=== PATIENT | female | born 1955 | race Caucasian/White ===

== ENCOUNTER 2016-06-25 16:18 | Emergency (ER) | payer BC ==
--- NOTE | 2016-06-25 16:21 | PDOC ---
History of Present Illness - History of Present Illness Initial Comments: 06/25/16 16:33 Patient is a 60 year old female with significant medical hx of arthritis who is presenting to the ED with a superficial laceration to the left thumb since today. The patient accidentally cut her thumb using a clean, new exacto knife. She reports her last tetanus shot is unknown. <Ernestina Lindsay - Last Filed: 06/25/16 16:33> <Clay Ortega - Last Filed: 06/25/16 16:38> - General Chief Complaint: Laceration Stated Complaint: LEFT THUMB LACERATION Time Seen by Provider: 06/25/16 16:21 Past History <Ernestina Lindsay - Last Filed: 06/25/16 16:33> - Past Medical History Asthma: No Diabetes: No HTN: No - Psycho/Social/Smoking Cessation Hx Anxiety: No Suicidal Ideation: No Smoking Status: No Smoking History: Never smoked Number of Cigarettes Smoked Daily: 0 <Clay Ortega - Last Filed: 06/25/16 16:38> - Past Medical History Allergies/Adverse Reactions: Allergies Allergy/AdvReac Type Severity Reaction Status Date / Time CODIENE Allergy Uncoded 06/25/16 16:19 Home Medications: Ambulatory Orders Methotrexate [Mexate] 1 dose PO Q7D 11/06/12 Cholecalciferol (Vitamin D3) [Vitamin D3 -] 400 unit PO DAILY 06/25/16 Colesevelam HCl [Welchol (Nf)] 3,750 mg PO DAILY 06/25/16 Folic Acid 1 mg PO DAILY 06/25/16 Review of Systems - Review of Systems Comments:: 06/25/16 16:33 CONSTITUTIONAL: Absent: fever, no chills, no fatigue EYES: Absent: visual changes ENT: Absent: ear pain, no sore throat CARDIOVASCULAR: Absent: chest pain, no palpitations RESPIRATORY: Absent: cough, no SOB GI: Absent: abdominal pain, no nausea, no vomiting, no constipation, no diarrhea GENITOURINARY: Absent: dysuria, no frequency, no hematuria MUSKULOSKELETAL: Absent: back pain, no arthralgia, no myalgia SKIN: Present: skin laceration to the left thumb Absent: rash NEURO: Absent: headache <Ernestina Lindsay - Last Filed: 06/25/16 16:33> *Physical Exam - Vital Signs Last Vital Signs Temp Pulse Resp BP Pulse Ox 97.9 F 84 20 129/83 100 06/25/16 16:18 06/25/16 16:18 06/25/16 16:18 06/25/16 16:18 06/25/16 16:18 - Physical Exam Comments: 06/25/16 16:34 GENERAL: Well-appearing, well-nourished. No apparent distress. SKIN: 1 cm superficial laceration on the left thumb medial to the nail fold. Warm, dry. No rash <Ernestina Lindsay - Last Filed: 06/25/16 16:33> Procedures - Laceration/Wound Repair Left Finger Wound Length: to 2.5 cm Wound Explored: clean Wound's Depth, Shape: superficial Irrigated w/ Saline: Yes Betadine Prep: Yes Wound Repaired With: Dermabond <Clay Ortega - Last Filed: 06/25/16 16:38> Medical Decision Making - Medical Decision Making 06/25/16 16:31 The patient is well-appearing and in no acute distress There is no evidence of neurovascular injury She has a superficial laceration, which I repaired with Dermabond She will discuss tetanus status with her primary care physician, as she feels she is most likely had a tetanus booster within the past 5 years Clinical impression: Superficial laceration I discussed the physical exam findings, ancillary test results and final diagnoses with the patient. I answered all of the patient's questions. The patient was satisfied with the care received and felt comfortable with the discharge plan and treatment plan. The patient will call their primary care physician within 24 hours to arrange follow-up and will return to the Emergency Department with any new, persistent or worsening symptoms. A portion of this note was documented by scribe services under my direction. I have reviewed the details of the note, within reason, and agree with the documentation with the following case summary and management plan written by me. 06/25/16 16:38 <Clay Ortega - Last Filed: 06/25/16 16:38> *DC/Admit/Observation/Transfer - Attestations Scribe Attestion: 06/25/16 16:35 Documentation prepared by Ernestina Lindsay, acting as pediatric medical assistant for Clay Ortega MD. <Ernestina Lindsay - Last Filed: 06/25/16 16:33> <Clay Ortega - Last Filed: 06/25/16 16:38> Diagnosis at time of Disposition: Thumb laceration - Discharge Dispostion Disposition: HOME - Patient Instructions Printed Discharge Instructions: DI for Laceration Repair With Dermabond Additional Instructions: Return to the emergency department immediately with ANY new, persistent or worsening symptoms. You MUST call and follow up with your doctor tomorrow. Please make sure your doctor reviews the results of your emergency department evaluation.
[2016-06-25 16:40] VITALS: BP 129/83; PULSE 84; TEMP 97.9; BMI 27.1
== END 2016-06-25 16:55 | disposition home or self-care (01) ==
LOC: FER 16:18
PROC: 0HQGXZZ Repair Left Hand Skin, External Approach (ICD-10-PCS; principal; 2016-06-25)
DX: S61.012A Laceration without foreign body of left thumb without damage to nail, initial encounter (principal); W26.0XXA Contact with knife, initial encounter; Y93.9 Activity, unspecified; Y92.9 Unspecified place or not applicable
CPT/HCPCS: 99283-25